=== PATIENT | female | born 1960 | race Caucasian/White ===

== ENCOUNTER → 2018-03-06 | Outpatient (CLI) | payer OTHER | LOC: M RAD 08:38 | DX: R10.11 Right upper quadrant pain (principal); R11.0 Nausea; R19.7 Diarrhea, unspecified | CPT/HCPCS: 76705 ==

== ENCOUNTER 2018-04-20 06:25 | Emergency (ER) | payer OTHER ==
[2018-04-20 07:18] LABS: BASO % 0.3 % (0.0-1.0); EOS # 0.2 10^3/uL (0.0-0.50); EOS % 1.8 % (0.0-3.0); HEMATOCRIT 39.4 % (36.0-47.0); HEMOGLOBIN 13.2 g/dl (12.0-15.5); IMMATURE GRANULOCYTE % 0.4 % (0-3.0); LYMPH # 2.2 10^3/uL (1.5-4.5); LYMPH % 23.6 % (24.0-44.0); MEAN CORPUSCULAR HEMOGLOBIN 31.3 pg (27.0-33.0); MEAN CORPUSCULAR HGB CONC 33.5 g/dl (32.0-36.5); MEAN CORPUSCULAR VOLUME 93.4 fl (80.0-96.0); MONO # 1.1 10^3/uL (0.0-0.8); MONO % 11.4 % (0.0-5.0); NEUTROPHILS # 5.9 10^3/uL (1.8-7.7); NEUTROPHILS % 62.5 % (36.0-66.0); PLATELET COUNT, AUTOMATED 335 10^3/uL (150-450); RED BLOOD COUNT 4.22 10^6/uL (4.00-5.40); RED CELL DISTRIBUTION WIDTH 11.9 % (11.5-14.5); WHITE BLOOD COUNT 9.5 10^3/uL (4.0-10.0)
[2018-04-20 07:33] LABS: INR 1.01; PARTIAL THROMBOPLASTIN TIME 30.2 SECONDS (25.4-37.6); PROTHROMBIN TIME 13.4 SECONDS (12.1-14.4)
[2018-04-20 07:35] LABS: LACTIC ACID SEPSIS PROTOCOL 0.4 MMOL/L (0.4-2.0)
[2018-04-20 07:36] LABS: ALBUMIN/GLOBULIN RATIO 0.67 (1.00-1.93); ALKALINE PHOSPHATASE 187 U/L (45-117); ALT/SGPT 56 U/L (12-78); AMYLASE 25 U/L (25-115); ANION GAP 8 MEQ/L (8-16); AST/SGOT 26 U/L (7-37); BILIRUBIN,DIRECT 0.1 MG/DL (0.0-0.2); BILIRUBIN,TOTAL 0.4 MG/DL (0.2-1.0); BLOOD UREA NITROGEN 17 MG/DL (7-18); CALCIUM LEVEL 9.2 MG/DL (8.5-10.1); CARBON DIOXIDE LEVEL 23 MEQ/L (21-32); CHLORIDE LEVEL 105 MEQ/L (98-107); CREATININE FOR GFR 1.43 MG/DL (0.55-1.30); GLOMERULAR FILTRATION RATE 40.3 (>51); GLUCOSE, FASTING 105 MG/DL (70-100); LIPASE 90 U/L (73-393); POTASSIUM SERUM 4.2 MEQ/L (3.5-5.1); SODIUM LEVEL 136 MEQ/L (136-145); TOTAL PROTEIN 7.5 GM/DL (6.4-8.2)
[2018-04-20] MEDS ORDERED: ISOVUE-370 76% 100ML VIAL (Q9967) As Ordered (07:37)
[2018-04-20] MEDS: NS 1,000 ML IV (07:43)
[2018-04-20] MEDS: MORPHINE 4 MG/ML 1ML VIAL/SYRINGE (J2270) IV (07:44)
[2018-04-20] MEDS: ONDANSETRON 4MG/2ML VIAL (J2405) IV (07:44)
[2018-04-20 08:38] LABS: KETONE, URINE AUTO RFX NEGATIVE (NEGATIVE); MUCUS, URINE RFX SMALL (NEGATIVE); NITRITE, URINE AUTO RFX NEGATIVE (NEGATIVE); RBC, URINE AUTO RFX 1 /HPF (0-3); SPECIFIC GRAVITY UR AUTO RFX 1.025 (1.002-1.035); SQUAM EPITHELIAL CELL UR AURFX 5 /HPF (0-6); WBC, URINE AUTO RFX 7 /HPF (0-3)
[2018-04-20 08:49] LABS: LEUKOCYTE ESTERASE UR AUTO RFX TRACE (NEGATIVE)
== END 2018-04-20 09:44 | disposition home or self-care (01) ==
LOC: M ED 06:25
DX: C48.1 Malignant neoplasm of specified parts of peritoneum (principal); I10 Essential (primary) hypertension; J45.909 Unspecified asthma, uncomplicated; E07.9 Disorder of thyroid, unspecified; Z87.891 Personal history of nicotine dependence
CPT/HCPCS: J2270

== ENCOUNTER → 2019-04-14 | Outpatient (CLI) | payer BC, OTHER ==
[~2019-04-14] MED LIST: BREO1INH; CELE20TA OR; CELE40TA OR; CLIMDIS; LEVO125T4; LOSARTAN-HCTZ; MONT10TA2; OXYC-517; PERCOCET PO; SYNT100T OR; TYLE325T5 PO; VITA50005; ZOFR4TAB14 PO; ZYRT10CA PO
--- NOTE | 2019-04-17 12:46 | SLEEPCENT ---
DATE OF STUDY: 04/14/2019 ORDERING PROVIDER: ROSENDO Boogie Nocturnal polysomnography was performed for evaluation of sleep physiology in this patient with a history of excessive somnolence, morning headaches, and nonrestorative sleep, who has comorbidities of hypertension and acid reflux. 7 hours and 33 minutes of data were reviewed. There were 380 minutes of sleep identified. Sleep latency was normal at 8.5 minutes. Rapid eye movement (REM) latency was normal at 90 minutes. Sleep architecture was fairly well-preserved. There were three REM cycles. Overall sleep efficiency 84.8%. The electrocardiogram showed a sinus rhythm with an average heart rate of 64 beats per minute. Electroencephalogram (EEG) showed normal waveforms for awake and sleep. There were 77 respiratory events identified of 10 seconds in duration or greater for an apnea-hypopnea index of 12.2. The events were primarily obstructive, not exclusive to sleep stage nor body posture. Arousals from respiratory events occurred 4.6 times per hour, and oxygen desaturations were seen into the 80s. Limb activity was noted, but limb movement arousals were few. Snoring was noted over the course of the study, and remaining measures of sleep physiology were normal. IMPRESSION: Obstructive sleep apnea syndrome (G47.33). Apnea-hypopnea index 12.2. RECOMMENDATION: The patient should be encouraged to return to the sleep disorder center for pressure therapy. In the interim, alcohol and sedative avoidance should be practiced and caution exercised during the operation of motor vehicles.
== END ==
LOC: M SLEEP 20:00
PROVIDERS: ATTEND Physician Assistant
DX: G47.30 Sleep apnea, unspecified (principal)

== ENCOUNTER → 2019-05-21 | Outpatient (CLI) | payer BC, OTHER ==
--- NOTE | 2019-05-23 00:20 | SLEEPCENT ---
DATE OF PROCEDURE: 05/21/2019 ORDERED BY: Elmer Sargent PA-C Nocturnal polysomnography was performed for the titration of pressure therapy in this patient with obstructive sleep apnea syndrome, apnea-hypopnea index 12.2. For testing a ResMed SoftEdge standard size mask was used, 4 cm of water pressure were applied to the circuit and the lights were extinguished. 7 hours and 52 minutes of data were reviewed. There were 400.5 minutes of sleep identified. Sleep latency was normal at 9.5 minutes. Rapid eye movement (REM) latency was normal at 64 minutes. Sleep architecture was good with four REM cycles. Overall sleep efficiency 86.0%. The patient's electrocardiogram showed a sinus rhythm with an average heart rate of 70 beats per minute. EEG showed normal waveforms for awake and sleep. Respiratory events were best palliated with continuous positive airway pressure (CPAP) at a pressure of +5 and remaining measures of sleep physiology were reasonably normal. IMPRESSION: Obstructive sleep apnea syndrome (G47.33). RECOMMENDATIONS: Nightly use of pressure therapy 5 cm of water.
== END ==
LOC: M SLEEP 19:42
PROVIDERS: ATTEND Physician Assistant
DX: G47.33 Obstructive sleep apnea (adult) (pediatric) (principal)

== ENCOUNTER → 2019-05-28 | Outpatient (REF) | LOC: M LAB LCGH 14:48 | PROVIDERS: ATTEND Physician Assistant | DX: D22.39 Melanocytic nevi of other parts of face (principal) ==

== ENCOUNTER 2020-05-19 19:14 | Inpatient (IN) | payer BC, OTHER ==
[~2020-05-19] VITALS: Ht 167.6 cm; Wt 101.8 kg
[~2020-05-19 19:14] MED LIST changes: -MONT10TA2; +MONT10TA4
[2020-05-19] MEDS ORDERED: LOSA50TA88 PO (19:25)
[2020-05-19] MEDS ORDERED: NS 1,000 ML IV SCH (20:07)
[2020-05-19] MEDS ORDERED: MORPHINE 4 MG/ML 1ML VIAL/SYRINGE (J2270) IV ONE (20:15)
[2020-05-19] MEDS ORDERED: ERTAPENEM SODIUM 1 GM in NS MINI-BAG PLUS 50 ML IV ONE (20:15)
[2020-05-19 20:44] LABS: BASO % 0.4 % (0.0-1.0); EOS # 0.1 10^3/uL (0.0-0.5); EOS % 0.8 % (0.0-3.0); HEMATOCRIT 37.2 % (36.0-47.0); HEMOGLOBIN 12.4 g/dl (12.0-15.5); LYMPH % 25.1 % (24.0-44.0); MEAN CORPUSCULAR HEMOGLOBIN 31.8 pg (27.0-33.0); MEAN CORPUSCULAR HGB CONC 33.3 g/dl (32.0-36.5); MEAN CORPUSCULAR VOLUME 95.4 fl (80.0-96.0); MONO % 12.8 % (0.0-5.0); NEUTROPHILS # 4.8 10^3/uL (1.5-8.5); NEUTROPHILS % 60.6 % (36.0-66.0); PLATELET COUNT, AUTOMATED 216 10^3/uL (150-450); WHITE BLOOD COUNT 7.9 10^3/uL (4.0-10.0)
[2020-05-19 21:14] LABS: BILIRUBIN,DIRECT 0.4 MG/DL (0.0-0.2); BILIRUBIN,TOTAL 0.9 MG/DL (0.2-1.0); CALCIUM LEVEL 8.9 MG/DL (8.5-10.1); CREATININE FOR GFR 1.02 MG/DL (0.55-1.30); POTASSIUM SERUM 3.7 MEQ/L (3.5-5.1); TOTAL PROTEIN 6.3 GM/DL (6.4-8.2)
[2020-05-19] MEDS ORDERED: KLOR10TA76 PO (21:25)
[2020-05-19] MEDS ORDERED: OMEP-218 PO (21:25)
[2020-05-19] MEDS ORDERED: BREO1INH INH (21:25)
[2020-05-19] MEDS ORDERED: SYNT137T7 PO (21:25)
[2020-05-19] MEDS ORDERED: CLIMDIS TD (21:25)
[2020-05-19] MEDS ORDERED: MOME50SP2 (21:25)
[2020-05-19] MEDS ORDERED: CELE20TA PO (21:25)
[2020-05-19] MEDS ORDERED: LOSA100T50 PO (21:25)
[2020-05-19] MEDS ORDERED: SAXE1INJ SC (21:25)
[2020-05-19] MEDS ORDERED: MOM 30ML SUSPENSION UDC PO PRN (22:15)
[2020-05-19] MEDS ORDERED: ACETAMINOPHEN TAB 650MG DOSE (2X325MG) PO PRN (22:15)
--- NOTE | 2020-05-19 22:37 | HPEPDOC ---
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 Patient was transferred from [facility] due to bed capacity to [facility]. In March 2018 during her cholecystectomy patient was found to have peritoneal mesothelioma. Later in July 2019 she underwent a thoracoscopy which confirmed pleural mesothelioma. She has been on chemotherapy cisplatin 6X Rounds but discontinued over the past 1 year due to side effects she states that her kidney function had worsened and liver enzymes had become elevated. She was at [facility] in [place] to explore plan for resumption of chemotherapy and she had not been there for the past 4 month. They performed a abdominal CT which showed possible subcapsular liver abscess. The location coincides with patient's right upper quadrant abdominal pain. Patient says the abdominal pain has been ongoing for the past 6 weeks but since Sunday it had gotten worse which prompted her to follow back at [facility]. She says the pain does not radiate and is exacerbated by movement. She rates the pain as sharp 5 out of 10. Alleviated with rest. She denies any fevers, chills, shortness of breath, chest pain. She's been having regular bowel movements. Labs done at [facility] were unremarkable WBC 7.4 and she has been afebrile. CT abdomen done at [facility] is on a disc in patient's chart. The ED consulted with surgery Dr. Mancera who will see the patient in the morning. He suggested that the interventional radiologist in the morning should review the imaging from the disc to determine if the suspected abscess is drainable. Patient is originally from [place] and follows up with an oncologist there Dr. Hunt. PAST MEDICAL HISTORY: hypothyroidism, HTN, pleural mesothelioma metastasized to the omentum PAST SURGICAL HISTORY: Thoracoscopy July 2019 [place] cystectomy March 2018 Tonsillectomy Right leg melanoma removal around the ankle SOCIAL HISTORY: Denies being an active tobacco user but did smoke a long time ago does not recollect when exactly Denies drinking any alcohol or using any illicit drugs. FAMILY HISTORY: Denies history of lung disease in the family or cancers that she is aware of ALLERGIES: Please see below. REVIEW OF SYSTEMS: Constitutional: No sweating or weight loss Eyes: No eye pain or acute blurred vision HENT: No complaints of headache or sore throat Cadiovascular: No Chest pain or palpitations Pulm: No SOB or cough Gastrointestinal: Per HPI Genitourinary: No dysuria or hematuria Musculoskeletal: No back pain or joint pain Skin: No rash or jaundice Neurological: No weakness. . HOME MEDICATIONS: Please see below. PHYSICAL EXAMINATION: Constitutional: Awake and alert, in no apparent distress ENT: Sclera are clear. Mucosa is moist. Respiratory: Lungs CTA bilaterally. No respiratory distress. No use of accessory muscles. Cardiovascular: RRR S1 and S2 are normal, no murmur Gastrointestinal: Abdomen is soft, non distended, tender around the right upper quadrant but not tender elsewhere, no rebound tenderness, BS present. Musculoskeletal: No pitting edema of lower extremities. No joint deformities. Neurologic: No focal neurological deficit. Mental Status: A&O x3, normal affect Skin: Warm, dry area were melanomas removed around the right ankle. LABORATORY DATA: See below. IMAGING: CT from [facility] is on a disc in patient's chart MICROBIOLOGY: Please see below. ASSESSMENT/PLAN # RUQ pain: could be 2/2 liver mets vs abscess. Surgery Dr Mancera on board. Ask IR in the a.m. to review CT done at [facility] to determine if they can drain the possible liver abscess. Her oncologist is in [place] , can consider o ncology consult here. IV morphine 2 mg PRN. maintenance fluids while NPO. No signs of infection, normal WBC, afebrile, will hold off on starting ABx. BCx. # Hypothyroidism: resume home synthroid. # HTN: normotensive. Hold home losartan, monitor and titrate. # GERD resume home PPI # DVT prophylaxis: lovenox. Hold in am for possible IR drainage resume 05/21 [facility] Vital Signs Vital Signs Date Time Temp Pulse Resp B/P (MAP) Pulse Ox O2 Delivery O2 Flow Rate FiO2 05/19/20 21:03 18 99 05/19/20 19:58 05/19/20 19:56 Room Air 05/19/20 19:15 98.1 90 Laboratory Data Labs 24H Laboratory Tests 2 05/19/20 20:38: Immature Granulocyte % (Auto) 0.3, Neutrophils (%) (Auto) 60.6, Lymphocytes (%) (Auto) 25.1, Monocytes (%) (Auto) 12.8H, Eosinophils (%) (Auto) 0.8, Basophils (%) (Auto) 0.4, Neutrophils # (Auto) 4.8, Lymphocytes # (Auto) 2.0, Monocytes # (Auto) 1.0H, Eosinophils # (Auto) 0.1, Basophils # (Auto) 0.0, Nucleated Red Blood Cells % (auto) 0.0, Anion Gap 8, Glomerular Filtration Rate 59.0, Calcium Level 8.9, Total Bilirubin 0.9, Direct Bilirubin 0.4H, Aspartate Amino Transf (AST/SGOT) 80H, Alanine Aminotransferase (ALT/SGPT) 188H, Alkaline Phosphatase 301H, Total Protein 6.3L, Albumin 3.0L, Albumin/Globulin Ratio 0.9L, Lipase 34L CBC/BMP Laboratory Tests 05/19/20 20:38 Home Medications Scheduled Citalopram Hydrobromide (Celexa) 20 Mg Tablet, 20 MG PO DAILY Estradiol/Levonorgestrel (Climara Pro Patch) 1 Each Patch.tdwk, 1 PATCH TD QWEEK SUNDAY Fluticasone/Vilanterol (Breo Ellipta 100-25 Mcg INH) 1 Each Blst.w.dev, 1 PUFF INH DAILY Levothyroxine Sodium (Synthroid) 137 Mcg Tablet, 137 MCG PO DAILY Liraglutide (Saxenda) 3 Mg/0.5 Ml Pen.injctr, 3 MG SC DAILY Losartan Potassium (Losartan Potassium) 100 Mg Tablet, 100 MG PO DAILY Mometasone Furoate (Mometasone Furoate) 17 Gm [place].pump, 1 SPRAY NA DAILY Omeprazole (Omeprazole) 20 Mg Capsule.dr, 20 MG PO DAILY Potassium Chloride (Klor-Con M10) 10 Meq Tab.er.prt, 10 MEQ PO DAILY Allergies Coded Allergies: codeine (Verified Allergy, Unknown, unknown, 05/19/20) prochlorperazine (Verified Adverse Reaction, Mild, "loopy", 05/19/20) A-FIB/CHADSVASC A-FIB History Current/History of A-Fib/PAF?: No OMAIRA SHEPARD MD May 19, 2020 22:22
[2020-05-19] MEDS: MORPHINE 2 MG/ML 1ML VIAL (J2270) IV PRN (23:37)
[2020-05-19] MEDS: NS 1,000 ML IV SCH (23:38)
[2020-05-20] MEDS: MORPHINE 2 MG/ML 1ML VIAL (J2270) IV PRN ×3 (06:09→21:20)
[2020-05-20] MEDS: NS 1,000 ML IV SCH (07:05)
[2020-05-20 07:43] LABS: HEMATOCRIT 36.7 % (36.0-47.0); HEMOGLOBIN 11.9 g/dl (12.0-15.5); MEAN CORPUSCULAR HEMOGLOBIN 31.6 pg (27.0-33.0); MEAN CORPUSCULAR HGB CONC 32.4 g/dl (32.0-36.5); MEAN CORPUSCULAR VOLUME 97.6 fl (80.0-96.0); PLATELET COUNT, AUTOMATED 209 10^3/uL (150-450); RED BLOOD COUNT 3.76 10^6/uL (4.00-5.40); WHITE BLOOD COUNT 5.8 10^3/uL (4.0-10.0)
[2020-05-20 08:13] LABS: BLOOD UREA NITROGEN 11 MG/DL (7-18); CALCIUM LEVEL 8.6 MG/DL (8.5-10.1); CARBON DIOXIDE LEVEL 27 MEQ/L (21-32); CHLORIDE LEVEL 105 MEQ/L (98-107); CREATININE FOR GFR 0.97 MG/DL (0.55-1.30); GLOMERULAR FILTRATION RATE > 60.0 (>51); GLUCOSE, FASTING 85 MG/DL (70-100); POTASSIUM SERUM 4.2 MEQ/L (3.5-5.1); SODIUM LEVEL 137 MEQ/L (136-145)
[2020-05-20 08:14] LABS: ALBUMIN 2.6 GM/DL (3.2-5.2); ALT/SGPT 174 U/L (12-78); BILIRUBIN,TOTAL 0.8 MG/DL (0.2-1.0); TOTAL PROTEIN 5.6 GM/DL (6.4-8.2)
[2020-05-20] MEDS ORDERED: LEVOTHYROXINE 137MCG TABLET (0.137MG) PO SCH (09:00)
[2020-05-20] MEDS: OMEPRAZOLE 20 MG CAP PO SCH ×2 (09:00→09:27)
[2020-05-20] MEDS: CitaloPRAM (CeleXA) 20 MG TAB PO SCH (09:27)
[2020-05-20] MEDS: LEVOTHYROXINE 137MCG TABLET (0.137MG) PO SCH (09:32)
[2020-05-20 12:00] VITALS: BP 129/71
--- NOTE | 2020-05-20 13:23 | IPNPDOC ---
Text Note Date of Service The patient was seen on 05/20/20. NOTE Subjective: Patient continues to complain of abdominal pain. She developed few episode vomiting with bile in the morning PHYSICAL EXAMINATION: General: NAD ENT: PERRLA, EOMI Respiratory: Lungs CTA bilaterally. No respiratory distress. No use of accessory muscles. Cardiovascular: RRR S1 and S2 are normal, no murmur Gastrointestinal: Abdomen is soft, non distended, RUQ tenderness, bowel sounds present Musculoskeletal: No pitting edema of lower extremities. No joint deformities. Neurologic: No focal neurological deficit. Mental Status: A&O x3, normal affect Skin: Warm, scar area were melanomas removed around the right ankle. Assessment and plan Patient is 59 years old female with past medical history of hypothyroidism, HTN, pleural mesothelioma metastasized to the omentum was transferred with abdominal pain from [facility]. CT scan was done and showed possible subscapular liver abscesses versus metastatic lesion and colitis. RUQ pain Dr. 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
[2020-05-20] MEDS: PIPERACILLIN/TAZOBACTAM SOD 3.375 GM in D5W MINI-BAG PLUS 50 ML IV SCH ×2 (13:24→18:17)
[2020-05-20 15:00] VITALS: BP 119/63
[2020-05-20] MEDS: ONDANSETRON 4MG/2ML VIAL IV PRN ×2 (16:32→21:20)
[2020-05-20 22:00] VITALS: BP 100/51
[2020-05-20 22:19] VITALS: BP 110/60
[2020-05-21] MEDS: PIPERACILLIN/TAZOBACTAM SOD 3.375 GM in D5W MINI-BAG PLUS 50 ML IV SCH ×4 (01:21→18:10)
[2020-05-21 06:00] VITALS: BP 117/58
[2020-05-21] MEDS: LEVOTHYROXINE 137MCG TABLET (0.137MG) PO SCH (06:18)
[2020-05-21 08:45] LABS: BASO % 0.4 % (0.0-1.0); EOS # 0.1 10^3/uL (0.0-0.5); EOS % 1.7 % (0.0-3.0); HEMATOCRIT 34.5 % (36.0-47.0); HEMOGLOBIN 11.4 g/dl (12.0-15.5); LYMPH # 1.4 10^3/uL (1.5-5.0); LYMPH % 27.2 % (24.0-44.0); MEAN CORPUSCULAR HEMOGLOBIN 32.6 pg (27.0-33.0); MEAN CORPUSCULAR VOLUME 98.6 fl (80.0-96.0); MONO # 0.5 10^3/uL (0.0-0.8); MONO % 9.5 % (0.0-5.0); NEUTROPHILS # 3.2 10^3/uL (1.5-8.5); NEUTROPHILS % 60.8 % (36.0-66.0); PLATELET COUNT, AUTOMATED 221 10^3/uL (150-450); WHITE BLOOD COUNT 5.3 10^3/uL (4.0-10.0)
[2020-05-21 09:10] LABS: ALBUMIN 2.3 GM/DL (3.2-5.2); BILIRUBIN,TOTAL 0.7 MG/DL (0.2-1.0); CALCIUM LEVEL 8.2 MG/DL (8.5-10.1); CREATININE FOR GFR 1.12 MG/DL (0.55-1.30); POTASSIUM SERUM 3.9 MEQ/L (3.5-5.1); TOTAL PROTEIN 5.3 GM/DL (6.4-8.2)
[2020-05-21] MEDS: CitaloPRAM (CeleXA) 20 MG TAB PO SCH (09:12)
[2020-05-21] MEDS: OMEPRAZOLE 20 MG CAP PO SCH (09:12)
[2020-05-21] MEDS: ENOXAPARIN 40MG/0.4ML SYRINGE (J1650 PER 10MG) SC SCH (09:12)
--- NOTE | 2020-05-21 12:39 | IPNPDOC ---
Text Note Date of Service The patient was seen on 05/21/20. NOTE Subjective: Patient stated that she is doing better today. Abdominal pain res olved. PHYSICAL EXAMINATION: General: NAD ENT: PERRLA, EOMI Respiratory: Lungs CTA bilaterally. No respiratory distress. No use of accessory muscles. Cardiovascular: RRR S1 and S2 are normal, no murmur Gastrointestinal: Abdomen is soft, non distended, RUQ tenderness, bowel sounds present Musculoskeletal: No pitting edema of lower extremities. No joint deformities. Neurologic: No focal neurological deficit. Mental Status: A&O x3, normal affect Skin: Warm, scar area were melanomas removed around the right ankle. Assessment and plan Patient is 59 years old female with past medical history of hypothyroidism, HTN, pleural mesothelioma metastasized to the omentum was transferred with abdominal pain from [facility]. CT scan was done and showed possible subscapular liver abscesses versus metastatic lesion and colitis. RUQ pain Resolved on 05/21/20 Dr. 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
[2020-05-21 14:00] VITALS: BP 132/77
[2020-05-21] MEDS: ONDANSETRON 4MG/2ML VIAL IV PRN (18:09)
[2020-05-21] MEDS: MORPHINE 2 MG/ML 1ML VIAL (J2270) IV PRN (18:10)
[2020-05-21 22:00] VITALS: BP 127/75
[2020-05-22] MEDS: PIPERACILLIN/TAZOBACTAM SOD 3.375 GM in D5W MINI-BAG PLUS 50 ML IV SCH ×2 (00:25→08:05)
[2020-05-22] MEDS: LEVOTHYROXINE 137MCG TABLET (0.137MG) PO SCH (05:37)
[2020-05-22 06:00] VITALS: BP 123/76
[2020-05-22] MEDS: OMEPRAZOLE 20 MG CAP PO SCH (08:05)
[2020-05-22] MEDS: CitaloPRAM (CeleXA) 20 MG TAB PO SCH (08:05)
[2020-05-22] MEDS: ENOXAPARIN 40MG/0.4ML SYRINGE (J1650 PER 10MG) SC SCH (08:06)
[2020-05-22] MEDS ORDERED: FLAG250T PO (09:47)
[2020-05-22] MEDS ORDERED: CIPR-250 PO (09:47)
--- NOTE | 2020-05-22 13:02 | DS.PDOC ---
Discharge Summary General Date of Admission May 19, 2020 at 22:05 Date of Discharge 05/22/20 Discharge Summary PROCEDURES PERFORMED DURING STAY: [None]. ADMITTING DIAGNOSES: RUQ pain Hypothyroidism Hypertension GERD pleural mesothelioma DISCHARGE DIAGNOSES: RUQ pain Hypothyroidism Hypertension GERD pleural mesothelioma COMPLICATIONS/CHIEF COMPLAINT: Cancer Of Omentum, Peritoneal Mesothelioma. HISTORY OF PRESENT ILLNESS:Patient is 59 years old female with past medical history of hypothyroidism, HTN, pleural mesothelioma metastasized to the omentum was transferred with abdominal pain from [facility]. CT scan was done and showed possible subscapular liver abscesses versus metastatic lesion and colitis. HOSPITAL COURSE: During hospital stay following issue addressed RUQ pain Resolved on 05/21/20 Dr. Walker reviewed abdominal CT scan, she thinks unlikely patient has liver abscess, most likely reactive inflammatory changes secondary to colitis Continue antibiotic therapy with Zosyn IV Pain management full liquid diet Hypothyroidism Continue Synthroid Hypertension continue home cardioprotective medication with parameters GERD Continue PPI pleural mesothelioma metastasized to the omentum Follow-up with oncologist team in [place] DISCHARGE MEDICATIONS: Please see below. ALLERGIES: Please see below. PHYSICAL EXAMINATION ON DISCHARGE: VITAL SIGNS: Please see below. General: NAD ENT: PERRLA, EOMI Respiratory: Lungs CTA bilaterally. No respiratory distress. No use of accessory muscles. Cardiovascular: RRR S1 and S2 are normal, no murmur Gastrointestinal: Abdomen is soft, non distended, RUQ tenderness, bowel sounds present Musculoskeletal: No pitting edema of lower extremities. No joint deformities. Neurologic: No focal neurological deficit. Mental Status: A&O x3, normal affect Skin: Warm, scar area were melanomas removed around the right ankle. LABORATORY DATA: Please see below. PROGNOSIS: Fair ACTIVITY: [As tolerated]. DIET: Regular DISCHARGE PLAN: Home DISCHARGE INSTRUCTIONS: Follow-up with PCP and oncologist DISCHARGE CONDITION: [Stable]. TIME SPENT ON DISCHARGE: Greater than 40 minutes. Vital Signs/I&Os Vital Signs Date Time Temp Pulse Resp B/P (MAP) Pulse Ox O2 Delivery O2 Flow Rate FiO2 05/22/20 06:00 99.5 84 18 123/76 (92) 91 Room Air I&O- Last 24 Hours up to 6 AM 05/22/20 06:00 Intake Total 2260 ml Output Total 2350 ml Balance -90 ml Microbiology Microbiology 05/19/20 Blood Culture - Preliminary, Resulted No Growth after 48 hours. All Specime... 10/7/20 Blood Culture - Preliminary, Resulted No Growth after 48 hours. All Specime... Discharge Medications Scheduled Ciprofloxacin HCl (Cipro) 250 Mg Tablet, 1 TAB PO BID Citalopram Hydrobromide (Celexa) 20 Mg Tablet, 20 MG PO DAILY, (Reported) Estradiol/Levonorgestrel (Climara Pro Patch) 1 Each Patch.tdwk, 1 PATCH TD QWEEK, (Reported) SUNDAY Fluticasone/Vilanterol (Breo Ellipta 100-25 Mcg INH) 1 Each Blst.w.dev, 1 PUFF INH DAILY, (Reported) Levothyroxine Sodium (Synthroid) 137 Mcg Tablet, 137 MCG PO DAILY, (Reported) Liraglutide (Saxenda) 3 Mg/0.5 Ml Pen.injctr, 3 MG SC DAILY, (Reported) Losartan Potassium (Losartan Potassium) 100 Mg Tablet, 100 MG PO DAILY, (Reported) Metronidazole (Flagyl) 250 Mg Tablet, 1 TAB PO TID Mometasone Furoate (Mometasone Furoate) 17 Gm [place].pump, 1 SPRAY NA DAILY, (Reported) Omeprazole (Omeprazole) 20 Mg Capsule.dr, 20 MG PO DAILY, (Reported) Potassium Chloride (Klor-Con M10) 10 Meq Tab.er.prt, 10 MEQ PO DAILY, (Reported) Allergies Coded Allergies: codeine (Verified Allergy, Unknown, unknown, 05/19/20) prochlorperazine (Verified Adverse Reaction, Mild, "loopy", 05/19/20) HOLLI SPENCE DO May 22, 2020 13:02
--- NOTE | 2020-05-25 09:37 | REP ---
CT STUDY CHEST, ABDOMEN, AND PELVIS WITH INTRAVENOUS (IV) BUT WITHOUT ORAL CONTRAST: OUTSIDE CASE INTERPRETATION. CT STUDY DONE AT [facility]. COMPARISON: CT study abdomen from 04/20/2018. HISTORY: Patient with history of peritoneal mesothelioma presents with acute abdominal pain. The findings were discussed with the requesting physician, Adam Meek DO by telephone at the time of this dictation. FINDINGS: Preliminary digital residential fee appraiser radiograph demonstrates discoid atelectasis in the right base and mild gaseous distention of colonic loops to the left of midline question ileus. Lung window settings demonstrate plate-like atelectasis over the right hemidiaphragm mild in degree. No pulmonary mass or nodule is seen. No focal infiltrate is seen. No pleural or pericardial effusion is seen. No hilar or mediastinal adenopathy or mass lesion is observed. No bony destructive lesion seen. CT abdomen and pelvis images demonstrate an ill-defined area of pericolonic fat induration and edema superior to the right colon and just inferior to the inferior edge of the liver. This is similar to the inflammation and induration in the greater omentum seen on the 04/20/[address] study. This is presumed to have led to the diagnosis of peritoneal mesothelioma. There is no observable diverticulosis in the right colon or left colon for that matter. Diverticulitis with associated pericolonic fatty infiltration would be in the differential along with recurrent or residual peritoneal mesothelioma. There are loculated subcapsular fluid collections along the medial inferior surface of the liver, and there is a tiny amount of fluid at the tip of the liver inferolaterally. There is a small quantity of fluid in the pelvic reflections as well. No other abnormal fluid collection is seen. No intrahepatic fluid collection is observed. No drainable abscess is seen. There are tiny bilateral renal cortical cysts. No retroperitoneal mass or adenopathy is seen. No upper abdominal adenopathy is observed. The gallbladder is surgically absent. The pancreas is unremarkable. No focal hepatic or splenic lesion is seen. No abdominal wall defect observed. IMPRESSION: Findings suggestive of residual or recurrent peritoneal mesothelioma in the right subhepatic region adjacent to the right colon. There are tiny loculated subcapsular fluid collections associated with this at the inferior tip of the liver. Differential would include diverticulitis of the right colon with secondary fluid collections. Mild ileus pattern to the bowel gas. No evidence of free air. No drainable abscess seen. MTDD
== END 2020-05-22 12:40 | disposition home or self-care (01) | DRG 249 ==
LOC: M ED 19:14 → M ED INP 22:05 → ENRESERV 05-20 14:16 → M MSPAV 05-20 14:52
PROVIDERS: ADMIT Family Medicine; ATTEND Internal Medicine
DX: K52.9 Noninfective gastroenteritis and colitis, unspecified (principal); C45.1 Mesothelioma of peritoneum; C45.0 Mesothelioma of pleura; I10 Essential (primary) hypertension; K21.9 Gastro-esophageal reflux disease without esophagitis; E03.9 Hypothyroidism, unspecified; Z79.899 Other long term (current) drug therapy; Z88.5 Allergy status to narcotic agent; Z88.8 Allergy status to other drugs, medicaments and biological substances

== ENCOUNTER → 2020-05-26 | Outpatient (CLI) | payer BC, OTHER ==
[~2020-05-26] MED LIST changes: +BREO1INH INH; +CELE20TA PO; +CIPR-250 PO; +CLIMDIS TD; +FLAG250T PO; +KLOR10TA76 PO; +LOSA100T50 PO; +LOSA50TA88 PO; +MOME50SP2; +OMEP-218 PO; +SAXE1INJ SC; +SYNT137T7 PO
[2020-05-26 13:02] LABS: BASO % 0.2 % (0.0-1.0); EOS # 0.1 10^3/uL (0.0-0.5); EOS % 0.9 % (0.0-3.0); HEMATOCRIT 38.5 % (36.0-47.0); HEMOGLOBIN 12.6 g/dl (12.0-15.5); LYMPH # 1.8 10^3/uL (1.5-5.0); LYMPH % 19.8 % (24.0-44.0); MEAN CORPUSCULAR HEMOGLOBIN 31.5 pg (27.0-33.0); MEAN CORPUSCULAR HGB CONC 32.7 g/dl (32.0-36.5); MEAN CORPUSCULAR VOLUME 96.3 fl (80.0-96.0); MONO # 0.8 10^3/uL (0.0-0.8); MONO % 9.4 % (0.0-5.0); NEUTROPHILS # 6.2 10^3/uL (1.5-8.5); NEUTROPHILS % 69.4 % (36.0-66.0); PLATELET COUNT, AUTOMATED 380 10^3/uL (150-450); WHITE BLOOD COUNT 8.9 10^3/uL (4.0-10.0)
[2020-05-26 13:21] LABS: ALBUMIN 2.8 GM/DL (3.2-5.2); BILIRUBIN,DIRECT 0.2 MG/DL (0.0-0.2); BILIRUBIN,TOTAL 0.4 MG/DL (0.2-1.0); CREATININE FOR GFR 1.12 MG/DL (0.55-1.30); FREE T4 1.12 NG/DL (0.76-1.46); POTASSIUM SERUM 4.2 MEQ/L (3.5-5.1); THYROID STIMULATING HORMONE 3.35 uIU/ML (0.358-3.740); TOTAL PROTEIN 6.2 GM/DL (6.4-8.2)
[2020-05-26 13:23] LABS: TOTAL 25(OH) VITAMIN D 44.1 NG/ML (30.0-100.0)
== END ==
LOC: M LAB 12:20
PROVIDERS: ATTEND Physician Assistant
DX: K52.3 Indeterminate colitis (principal); E03.9 Hypothyroidism, unspecified

== ENCOUNTER → 2020-08-26 | Outpatient (CLI) | payer BC, OTHER ==
[~2020-08-26] MED LIST changes: -MONT10TA4; +MONT5TAB2
[2020-08-26 13:57] LABS: HEMATOCRIT 37.2 % (36.0-47.0); HEMOGLOBIN 11.8 g/dl (12.0-15.5); MEAN CORPUSCULAR HEMOGLOBIN 32.9 pg (27.0-33.0); MEAN CORPUSCULAR HGB CONC 31.7 g/dl (32.0-36.5); MEAN CORPUSCULAR VOLUME 103.6 fl (80.0-96.0); PLATELET COUNT, AUTOMATED 266 10^3/uL (150-450); RED BLOOD COUNT 3.59 10^6/uL (4.00-5.40); WHITE BLOOD COUNT 5.2 10^3/uL (4.0-10.0)
[2020-08-26 14:33] LABS: EOSINOPHILS 1 % (0-3); LYMPHOCYTES 49 % (16-44); MONOCYTES 9 % (0-5); NEUTROPHILS 41 % (28-66); PLATELET ESTIMATE NORMAL (NORMAL)
== END ==
LOC: M LAB 12:44
PROVIDERS: ATTEND Family Medicine
DX: C45.1 Mesothelioma of peritoneum (principal)

== ENCOUNTER → 2020-09-29 | Outpatient (CLI) | payer SELFPAY ==
[~2020-09-29] MED LIST changes: +MONT10TA10; -MONT5TAB2
== END ==
LOC: M LABSMTC 13:32
PROVIDERS: ATTEND Pediatrics
DX: Z20.822 Contact with and (suspected) exposure to COVID-19 (principal)

== ENCOUNTER → 2021-01-03 | Outpatient (CLI) | payer BC, OTHER ==
[~2021-01-03] MED LIST changes: +CLAR10CA3 PO; +COVI30VI IM; +DEXA4TA PO; +DILA4TAB13 PO; +FOLI1TAB11 PO; +LEVO175T2 PO; +ONDA8TAB10 PO; +PROC10TA4 PO; +XARE20TA PO
== END ==
LOC: M LAB 08:00
PROVIDERS: ATTEND Physician Assistant
DX: Z01.84 Encounter for antibody response examination (principal)

== ENCOUNTER → 2021-02-23 | Outpatient (CLI) | payer BC, OTHER ==
[2021-02-23 11:34] LABS: BASO % 0.6 % (0.0-1.0); EOS # 0.2 10^3/uL (0.0-0.5); HEMATOCRIT 38.3 % (36.0-47.0); HEMOGLOBIN 12.6 g/dl (12.0-15.5); LYMPH # 1.7 10^3/uL (1.5-5.0); LYMPH % 31.3 % (24.0-44.0); MEAN CORPUSCULAR HEMOGLOBIN 36.2 pg (27.0-33.0); MEAN CORPUSCULAR HGB CONC 32.9 g/dl (32.0-36.5); MEAN CORPUSCULAR VOLUME 110.1 fl (80.0-96.0); MONO # 0.7 10^3/uL (0.0-0.8); MONO % 13.2 % (2.0-8.0); NEUTROPHILS # 2.8 10^3/uL (1.5-8.5); NEUTROPHILS % 51.7 % (36.0-66.0); PLATELET COUNT, AUTOMATED 195 10^3/uL (150-450); RED BLOOD COUNT 3.48 10^6/uL (4.00-5.40); WHITE BLOOD COUNT 5.4 10^3/uL (4.0-10.0)
[2021-02-23 11:47] LABS: INR 2.45; PROTHROMBIN TIME 27.1 SECONDS (12.5-14.3)
[2021-02-23 11:48] LABS: PARTIAL THROMBOPLASTIN TIME 42.1 SECONDS (24.2-38.5)
[2021-02-23 12:54] LABS: ALBUMIN 3.8 GM/DL (3.2-5.2); BILIRUBIN,TOTAL 0.6 MG/DL (0.2-1.0); CALCIUM LEVEL 9.6 MG/DL (8.8-10.2); CREATININE FOR GFR 1.11 MG/DL (0.55-1.30); FREE T4 1.74 NG/DL (0.76-1.46); GLOMERULAR FILTRATION RATE 53.4 (>45); POTASSIUM SERUM 3.7 MEQ/L (3.5-5.1); THYROID STIMULATING HORMONE 0.006 uIU/ML (0.358-3.740)
--- NOTE | 2021-02-23 16:23 | REP ---
INDICATION: ENCOUNTER FOR OTHER PREPROCEDURAL EXAMINATION / LABS 1ST. COMPARISON: October 21, 2019. TECHNIQUE: Two views.. FINDINGS: The lungs are well inflated and free of infiltrate. The pleural angles are sharp. The heart size is normal. Pulmonary vasculature is not increased. No significant bony abnormality is seen. A left-sided transvenous Wyoxhr-Q-Xmlb catheter is noted in place with its tip in the expected location of the superior vena cava. IMPRESSION: No active disease.. <Electronically signed by Ajay Quigley > 02/23/21 [id number]
== END ==
LOC: M LAB 10:31
PROVIDERS: ATTEND Physician Assistant
DX: Z01.818 Encounter for other preprocedural examination (principal)

== ENCOUNTER → 2021-03-01 | Outpatient (CLI) | payer BC ==
[~2021-03-01] MED LIST changes: +SYNT150T PO; +XARE15TA PO
--- NOTE | 2021-03-01 16:07 | DEXAMM ---
INDICATION: Z13.820 SCREENING FOR OSTEOPOROSIS. COMPARISON: None. TECHNIQUE: Bone density was measured using dual-energy x-ray absorptionmetry (DEXA). FINDINGS: AP SPINE L1-L4 BMD 1.228 g/cm2 Young Adult T-Score 0.3 Age Matched Z-Score 1.5. LT FEMUR, TOTAL BMD 0.983 g/cm2 Young Adult T-Score -0.2 Age Matched Z-Score 0.7. LT NECK BMD 0.860 g/cm2 Young Adult T-Score -1.3 Age Matched Z-Score 0.0. RT FEMUR, TOTAL BMD 0.940 g/cm2 Young Adult T-Score -0.5 Age Matched Z-Score 0.4. RT NECK BMD 0.828 g/cm2 Young Adult T-Score -1.5 Age Matched Z-Score -0.3. IMPRESSION: There is normal bone density of the spine. There is low bone density of the left hip. There is low bone density of the right hip. FOLLOW-UP: Recommendation for the next bone density exam: 2 years. <Electronically signed by Ajay Quigley > 03/01/21 [id number]
== END ==
LOC: M WHC 13:36
PROVIDERS: ATTEND Physician Assistant
DX: Z13.820 Encounter for screening for osteoporosis (principal)

== ENCOUNTER → 2021-03-01 | Outpatient (CLI) | payer BC, OTHER ==
[2021-03-01 11:11] LABS: INR 2.24; PROTHROMBIN TIME 25.3 SECONDS (12.5-14.3)
[2021-03-01 11:12] LABS: PARTIAL THROMBOPLASTIN TIME 38.2 SECONDS (24.2-38.5)
[2021-03-01 11:30] LABS: ALBUMIN 3.9 GM/DL (3.2-5.2); BILIRUBIN,DIRECT 0.1 MG/DL (0.0-0.2); BILIRUBIN,TOTAL 0.4 MG/DL (0.2-1.0); TOTAL PROTEIN 7.1 GM/DL (6.4-8.2)
== END ==
LOC: M LAB 09:42
PROVIDERS: ATTEND Physician Assistant
DX: R79.1 Abnormal coagulation profile (principal)

== ENCOUNTER → 2021-03-04 | Outpatient (CLI) | payer BC, OTHER ==
[~2021-03-04] MED LIST changes: +PROHANCE 279.3MG/ML 15ML VIAL ONE; +PROHANCE 279.3MG/ML 5ML VIAL ONE
--- NOTE | 2021-03-04 12:59 | REP ---
INDICATION: MESOTHELIOMA OF PERITONEUM. COMPARISON: CT 04/20/2018. TECHNIQUE: Multiple sequences obtained in the axial coronal planes prior to and following the intravenous administration of 10 cc ProHance. FINDINGS: The liver, spleen, adrenals and pancreas are unremarkable. There is no pancreatic duct or biliary duct dilatation. There is no evidence of adenopathy or free fluid. No mesenteric or omental mass is seen. No retroperitoneal mass is seen. There is an 8 mm cyst in the mid left kidney anteriorly. IMPRESSION: /2-MRI of the abdomen as discussed above. <Electronically signed by Naun Whitaker > 03/04/21 [id number]
== END ==
LOC: M PLAIMG 10:10
PROVIDERS: ATTEND Physician Assistant
DX: C45.1 Mesothelioma of peritoneum (principal)
CPT/HCPCS: 74183; A9576

== ENCOUNTER → 2021-03-16 | Outpatient (CLI) | payer BC, OTHER ==
[~2021-03-16] MED LIST changes: -PROHANCE 279.3MG/ML 15ML VIAL ONE; -PROHANCE 279.3MG/ML 5ML VIAL ONE
[2021-03-16 13:46] LABS: BASO % 0.4 % (0.0-1.0); EOS # 0.1 10^3/uL (0.0-0.5); EOS % 2.1 % (0.0-3.0); HEMATOCRIT 38.8 % (36.0-47.0); HEMOGLOBIN 12.8 g/dl (12.0-15.5); LYMPH # 1.9 10^3/uL (1.5-5.0); MEAN CORPUSCULAR HEMOGLOBIN 35.2 pg (27.0-33.0); MEAN CORPUSCULAR VOLUME 106.6 fl (80.0-96.0); MONO # 0.6 10^3/uL (0.0-0.8); MONO % 11.8 % (2.0-8.0); NEUTROPHILS # 2.2 10^3/uL (1.5-8.5); NEUTROPHILS % 46.5 % (36.0-66.0); PLATELET COUNT, AUTOMATED 198 10^3/uL (150-450); RED BLOOD COUNT 3.64 10^6/uL (4.00-5.40); WHITE BLOOD COUNT 4.7 10^3/uL (4.0-10.0)
[2021-03-16 13:59] LABS: INR 1.04; PARTIAL THROMBOPLASTIN TIME 31.3 SECONDS (25.9-37.0)
[2021-03-16 14:17] LABS: ALBUMIN 3.8 GM/DL (3.2-5.2); BILIRUBIN,TOTAL 0.4 MG/DL (0.2-1.0); CALCIUM LEVEL 9.7 MG/DL (8.8-10.2); CREATININE FOR GFR 1.01 MG/DL (0.55-1.30); GLOMERULAR FILTRATION RATE 59.5 (>45); POTASSIUM SERUM 4.4 MEQ/L (3.5-5.1); TOTAL PROTEIN 6.9 GM/DL (6.4-8.2)
== END ==
LOC: M PLALAB 10:56
PROVIDERS: ATTEND Physician Assistant
DX: E03.9 Hypothyroidism, unspecified (principal); C45.1 Mesothelioma of peritoneum; R79.1 Abnormal coagulation profile

== ENCOUNTER → 2021-04-21 | Outpatient (CLI) | payer BC, OTHER ==
[2021-04-21 17:31] LABS: BASO % 0.6 % (0.0-1.0); EOS # 0.1 10^3/uL (0.0-0.5); EOS % 2.3 % (0.0-3.0); HEMATOCRIT 41.5 % (36.0-47.0); HEMOGLOBIN 13.7 g/dl (12.0-15.5); LYMPH # 2.5 10^3/uL (1.5-5.0); LYMPH % 47.4 % (24.0-44.0); MEAN CORPUSCULAR HEMOGLOBIN 33.9 pg (27.0-33.0); MEAN CORPUSCULAR VOLUME 102.7 fl (80.0-96.0); MONO # 0.5 10^3/uL (0.0-0.8); MONO % 9.3 % (2.0-8.0); NEUTROPHILS # 2.1 10^3/uL (1.5-8.5); NEUTROPHILS % 40.2 % (36.0-66.0); PLATELET COUNT, AUTOMATED 204 10^3/uL (150-450); RED BLOOD COUNT 4.04 10^6/uL (4.00-5.40); WHITE BLOOD COUNT 5.3 10^3/uL (4.0-10.0)
[2021-04-21 17:43] LABS: INR 2.25; PROTHROMBIN TIME 25.3 SECONDS (12.7-14.5)
[2021-04-21 18:36] LABS: ALBUMIN 3.5 GM/DL (3.2-5.2); ALT/SGPT 23 U/L (12-78); BILIRUBIN,TOTAL 0.3 MG/DL (0.2-1.0); BLOOD UREA NITROGEN 15 MG/DL (7-18); CALCIUM LEVEL 9.7 MG/DL (8.8-10.2); CARBON DIOXIDE LEVEL 26 MEQ/L (21-32); CHLORIDE LEVEL 110 MEQ/L (98-107); CHOLESTEROL LEVEL 243 MG/DL (<200); CHOLESTEROL RISK RATIO 3.521 (<5); CREATININE FOR GFR 1.08 MG/DL (0.55-1.30); FREE T4 1.59 NG/DL (0.76-1.46); GLOMERULAR FILTRATION RATE 55.1 (>45); GLUCOSE, FASTING 92 MG/DL (70-100); HDL CHOLESTEROL 69 MG/DL (>40); LDL CHOLESTEROL 148 MG/DL (<100); NON-HDL-C 174 MG/DL; POTASSIUM SERUM 4.7 MEQ/L (3.5-5.1); SODIUM LEVEL 142 MEQ/L (136-145); THYROID STIMULATING HORMONE < 0.005 uIU/ML (0.358-3.740); TOTAL PROTEIN 6.7 GM/DL (6.4-8.2); TRIGLYCERIDES LEVEL 129 MG/DL (<150)
== END ==
LOC: M PLALAB 13:49
PROVIDERS: ATTEND Family Medicine
DX: Z01.818 Encounter for other preprocedural examination (principal); E03.9 Hypothyroidism, unspecified; Z13.220 Encounter for screening for lipoid disorders

== ENCOUNTER → 2021-04-23 | Outpatient (CLI) | payer BC, OTHER ==
[~2021-04-23] MED LIST changes: -KLOR10TA76 PO; +POTA-136 PO
== END ==
LOC: M LABSMTC 10:43
PROVIDERS: ATTEND Anesthesiology
DX: Z01.812 Encounter for preprocedural laboratory examination (principal); Z20.822 Contact with and (suspected) exposure to COVID-19

== ENCOUNTER → 2021-06-25 | Outpatient (CLI) | payer BC, OTHER ==
[2021-06-25 10:11] LABS: INR 1.94; PROTHROMBIN TIME 22.6 SECONDS (12.7-14.5)
[2021-06-25 10:12] LABS: PARTIAL THROMBOPLASTIN TIME 34.3 SECONDS (25.9-37.0)
== END ==
LOC: M LAB 09:01
PROVIDERS: ATTEND Internal Medicine Medical Oncology
DX: C45.1 Mesothelioma of peritoneum (principal)

== ENCOUNTER → 2021-08-19 | Outpatient (CLI) | payer BC, OTHER ==
[~2021-08-19] MED LIST changes: +LOSA100T45 PO; -LOSA100T50 PO; +LOSA50TA28 PO; -LOSA50TA88 PO; -MONT10TA10; +MONT10TA97; +ONDA-84 PO; -ONDA8TAB10 PO; -PROC10TA4 PO; +PROC10TA5 PO
[2021-08-19 09:34] LABS: BASO % 0.3 % (0.0-1.0); EOS # 0.2 10^3/uL (0.0-0.5); EOS % 2.2 % (0.0-3.0); HEMATOCRIT 40.7 % (36.0-47.0); HEMOGLOBIN 13.4 g/dl (12.0-15.5); LYMPH # 2.3 10^3/uL (1.5-5.0); MEAN CORPUSCULAR HEMOGLOBIN 33.8 pg (27.0-33.0); MEAN CORPUSCULAR HGB CONC 32.9 g/dl (32.0-36.5); MEAN CORPUSCULAR VOLUME 102.5 fl (80.0-96.0); MONO # 0.6 10^3/uL (0.0-0.8); MONO % 8.4 % (2.0-8.0); NEUTROPHILS # 4.5 10^3/uL (1.5-8.5); NEUTROPHILS % 58.8 % (36.0-66.0); PLATELET COUNT, AUTOMATED 185 10^3/uL (150-450); RED BLOOD COUNT 3.97 10^6/uL (4.00-5.40); WHITE BLOOD COUNT 7.6 10^3/uL (4.0-10.0)
[2021-08-19 10:07] LABS: ALBUMIN 3.5 GM/DL (3.2-5.2); BILIRUBIN,TOTAL 0.3 MG/DL (0.2-1.0); CALCIUM LEVEL 9.3 MG/DL (8.8-10.2); CHOLESTEROL RISK RATIO 2.943 (<5); CREATININE FOR GFR 1.12 MG/DL (0.55-1.30); FREE T4 1.24 NG/DL (0.76-1.46); GLOMERULAR FILTRATION RATE 52.8 (>45); POTASSIUM SERUM 4.1 MEQ/L (3.5-5.1); THYROID STIMULATING HORMONE 0.026 uIU/ML (0.358-3.740); TOTAL PROTEIN 6.3 GM/DL (6.4-8.2)
[2021-08-19 10:09] LABS: TOTAL 25(OH) VITAMIN D 18.2 NG/ML (30.0-100.0)
== END ==
LOC: M LAB 09:05
PROVIDERS: ATTEND Physician Assistant
DX: E03.9 Hypothyroidism, unspecified (principal); C45.1 Mesothelioma of peritoneum; E55.9 Vitamin D deficiency, unspecified

== ENCOUNTER → 2021-08-26 | Outpatient (REF) | payer OTHER ==
[~2021-08-26] MED LIST changes: +ERGO500029 PO; +OMEP-173 PO; -OMEP-218 PO; +SYNT125T PO
[2021-08-26 11:59] LABS: INR 0.92; PROTHROMBIN TIME 12.8 SECONDS (12.7-14.5)
[2021-08-26 12:00] LABS: PARTIAL THROMBOPLASTIN TIME 26.5 SECONDS (25.9-37.0)
== END ==
LOC: M LAB REF 11:22
PROVIDERS: ATTEND Physician Assistant
DX: Z51.81 Encounter for therapeutic drug level monitoring (principal); Z79.899 Other long term (current) drug therapy

== ENCOUNTER → 2022-11-21 | Outpatient (CLI) | payer BC, OTHER | LOC: M CARPUL 09:37 | PROVIDERS: ATTEND Physician Assistant | DX: R91.8 Other nonspecific abnormal finding of lung field (principal) ==

== ENCOUNTER → 2023-04-13 | Outpatient (REF) | payer MEDICARE, BC, OTHER ==
[~2023-04-13] MED LIST changes: -LOSA100T45 PO; +LOSA100T46 PO
== END ==
LOC: M SFHCDERM 16:57
PROVIDERS: ATTEND Nurse Practitioner Family
DX: D48.9 Neoplasm of uncertain behavior, unspecified (principal)

== ENCOUNTER → 2023-04-27 | Outpatient (CLI) | payer MEDICARE, OTHER | LOC: M LAB 12:05 | PROVIDERS: ATTEND Physician Assistant | DX: S80.861A Insect bite (nonvenomous), right lower leg, initial encounter (principal); X58.XXXA Exposure to other specified factors, initial encounter; Y92.9 Unspecified place or not applicable; Y93.9 Activity, unspecified; Y99.9 Unspecified external cause status ==

== ENCOUNTER → 2023-06-11 | Outpatient (CLI) | payer MEDICARE, BC, OTHER | LOC: M WHC 08:29 | PROVIDERS: ATTEND Physician Assistant | DX: N83.202 Unspecified ovarian cyst, left side (principal) ==

== ENCOUNTER → 2023-08-17 | Outpatient (CLI) | payer MEDICARE, BC, OTHER | LOC: M WHC 11:40 | PROVIDERS: ATTEND Physician Assistant | DX: Z12.31 Encounter for screening mammogram for malignant neoplasm of breast (principal) ==